=== PATIENT | female | born 1995 | race Caucasian/White ===

== ENCOUNTER 2016-12-11 11:58 | Emergency (ER) | payer OTHER ==
[~2016-12-11 11:58] MED LIST: AMOXICILLIN500 M1 PO; IBUPROFEN600 MG PO; RONDEC-DM SYRU120 ML PO
== END 2016-12-11 12:00 | disposition home or self-care (01) ==
LOC: CFTX 11:58
DX: O99.331 Smoking (tobacco) complicating pregnancy, first trimester (principal); F17.210 Nicotine dependence, cigarettes, uncomplicated; Z88.0 Allergy status to penicillin
CPT/HCPCS: 84703; 99284

== ENCOUNTER 2016-12-29 12:30 | Emergency (ER) | payer OTHER | END 2016-12-29 13:43 | disposition home or self-care (01) | LOC: CED 12:30 → CFTX 12:30 | DX: O21.9 Vomiting of pregnancy, unspecified (principal); O99.331 Smoking (tobacco) complicating pregnancy, first trimester; F17.210 Nicotine dependence, cigarettes, uncomplicated; Z3A.01 Less than 8 weeks gestation of pregnancy | CPT/HCPCS: 99283 ==